=== PATIENT | male | born 1955 | race Caucasian/White ===

== ENCOUNTER 2018-01-31 22:03 | Inpatient (IN) | payer BC ==
[~2018-01-31] VITALS: Ht 180.3 cm; Wt 129.4 kg
[~2018-01-31 22:03] MED LIST: ALTACE5 MG PO; CENTRUM MEN'S1 EACH PO; ENDOCET 5-3251 EACH PO; LO-DOSE ASPIRIN81 M1 PO; MOBIC7.5 MG PO; NITROSTAT0.4 MG SL; OMEGA-3 FISH O1 EAC9 PO; OXYCONTIN10 MG PO; TOPROL XL25 MG PO; ZANAFLEX4 MG PO; ZOCOR40 MG PO
[2018-02-01 06:07] VITALS: BP 125/75
[2018-02-01 15:57] VITALS: BP 111/68
[2018-02-01 19:53] VITALS: BP 114/60
[2018-02-01 23:21] VITALS: BP 110/61
[2018-02-02 04:08] VITALS: BP 107/67
[2018-02-02 07:26] VITALS: BP 113/53
[2018-02-02] MEDS ORDERED: ZANAFLEX4 MG PO ×2 (08:13→16:57)
[2018-02-02 15:16] VITALS: BP 131/62
== END 2018-02-02 17:18 | disposition home health service (06) | DRG 455 ==
LOC: ENRESERV 22:03 → 2SOUTH 02-01 05:34 → ENRESERV 02-01 13:30 → 3EAST 02-01 14:53 → 2SOUTH 02-01 15:16 → 3EAST 02-02 17:18
PROC: 0ST40ZZ Resection of Lumbosacral Disc, Open Approach (ICD-10-PCS; principal; 2018-02-01)
PROC: 0SG00AJ Fusion of Lumbar Vertebral Joint with Interbody Fusion Device, Posterior Approach, Anterior Column, Open Approach (ICD-10-PCS; principal; 2018-02-01)
PROC: 0SG3071 Fusion of Lumbosacral Joint with Autologous Tissue Substitute, Posterior Approach, Posterior Column, Open Approach (ICD-10-PCS; principal; 2018-02-01)
PROC: 0ST20ZZ Resection of Lumbar Vertebral Disc, Open Approach (ICD-10-PCS; principal; 2018-02-01)
PROC: 0SG0071 Fusion of Lumbar Vertebral Joint with Autologous Tissue Substitute, Posterior Approach, Posterior Column, Open Approach (ICD-10-PCS; principal; 2018-02-01)
PROC: 01NB0ZZ Release Lumbar Nerve, Open Approach (ICD-10-PCS; principal; 2018-02-01)
PROC: 0SG30AJ Fusion of Lumbosacral Joint with Interbody Fusion Device, Posterior Approach, Anterior Column, Open Approach (ICD-10-PCS; principal; 2018-02-01)
DX: M43.16 Spondylolisthesis, lumbar region (principal); M43.17 Spondylolisthesis, lumbosacral region; M48.061 Spinal stenosis, lumbar region without neurogenic claudication; M51.36 Other intervertebral disc degeneration, lumbar region; M43.06 Spondylolysis, lumbar region; I25.10 Atherosclerotic heart disease of native coronary artery without angina pectoris; I10 Essential (primary) hypertension; Z96.641 Presence of right artificial hip joint; Z79.82 Long term (current) use of aspirin; Z87.891 Personal history of nicotine dependence; Z95.5 Presence of coronary angioplasty implant and graft; Z79.891 Long term (current) use of opiate analgesic
CPT/HCPCS: 72100; 76000; 86850; 86900; 86901; 86920; J0131; J0330; J0690; J1100; J1580; J1885; J2250; J2405; J2710; J3370; J3480; J7643